=== PATIENT | male | born 1975 | race Two or more races ===

== ENCOUNTER 2024-11-17 02:47 | Emergency (ER) | payer OTHER ==
[2024-11-17 02:56] VITALS: TEMP 98; BMI 28.3
[2024-11-17 03:27] LABS: ABSOLUTE IMMATURE GRANULOCYTES 0.03 x10^3/uL (0.0-0.031); BASOPHILS # 0.12 x10^3/uL (0.01-0.08); EOSINOPHIL % 2.9 % (0.8-7.0); EOSINOPHILS # 0.21 x10^3/uL (0.04-0.54); MCHC 32.7 g/dl (32.3-36.5); MEAN CELL VOLUME 89.9 fl (79.0-92.2); MEAN PLT VOLUME 9.2 fl (9.4-12.4); MONOCYTE # 0.62 x10^3/uL (0.30-0.82); MONOCYTE % 8.6 % (5.3-12.2); RDW 13.2 % (12.1-15.9)
[2024-11-17] MEDS: SODIUM CHLORIDE 0.9% 500 ML INFUS.BAG IV ONE (03:37)
[2024-11-17] MEDS: FOLIC ACID INJECTION - 1 MG, THIAMINE HCL 100 MG, MULTIVIT INJECTION ADULT 10 ML in SOD... IVPB ONE (04:21)
[2024-11-17 05:37] LABS: GLUCOSE,RANDOM 102 mg/dL (74-106); TOT PROT 7.8 g/dl (6.4-8.2)
[2024-11-17 05:38] LABS: CO2 23 mmol/L (21-32)
[2024-11-17 05:40] LABS: ALK PHOS 99 U/L (40-150)
[2024-11-17 05:42] LABS: SGOT/AST 28 U/L (5-34); SGPT/ALT 44 U/L (0-55)
[2024-11-17 05:43] LABS: CREATININE 0.96 mg/dL (0.55-1.3)
[2024-11-17 06:42] LABS: COCAINE, UR NEGATIVE (NEGATIVE)
[2024-11-17 06:43] LABS: OPIATES, URI NEGATIVE (NEGATIVE); PHENCYCLIDINE,URINE POSITIVE (NEGATIVE); URINE AMPHETAMINES NEGATIVE (NEGATIVE); URINE BARBITURATES NEGATIVE (NEGATIVE); URINE BENZODIAZEPINES NEGATIVE (NEGATIVE)
[2024-11-17 06:44] LABS: METHADONE, UR NEGATIVE (NEGATIVE)
[2024-11-17 09:10] VITALS: BP 146/80; PULSE 97; RESP 16
[2024-11-17 10:51] LABS: HCV DIAGNOSTIC IN-HOUSE W/RFLX NON-REACTIVE (NONREACTIVE); HIV INTERPRETATION NEGATIVE (NEGATIVE)
== END 2024-11-17 10:05 | disposition home or self-care (01) ==
LOC: JER 02:47
PROC: 3E033GC Introduction of Other Therapeutic Substance into Peripheral Vein, Percutaneous Approach (ICD-10-PCS; principal; 2024-11-17)
DX: F10.929 Alcohol use, unspecified with intoxication, unspecified (principal); R94.31 Abnormal electrocardiogram [ECG] [EKG]
CPT/HCPCS: 36415; 70450-TC; 80053; 80307; 83735; 85025; 86803; 87389; 93005; 93010; 99285-25